=== PATIENT | male | born 1960 | race African-American/Black ===

== ENCOUNTER 2018-04-07 21:26 | Emergency (ER) | payer SELFPAY ==
--- NOTE | 2018-04-07 22:30 | ER ---
Nurse's Notes [facility] Name: Emory Stephens Age: 57 yrs Sex: Male : 1960 Arrival Date: 04/07/2018 Time: 21:27 Bed 27 Private MD: Diagnosis: Cutaneous abscess of back [any part, except buttock] Presentation: 04/07 21:43 Presenting complaint: Patient states: abscess to upper back X1 week. pt c/o increased ak1 pain today. pt with bandage over wound due to drainage that started today. Transition of care: patient was not received from another setting of care. Onset of symptoms is unknown. Risk Assessment: Do you want to hurt yourself or someone else? Patient reports no desire to harm self or others. Care prior to arrival: None. 21:43 Method Of Arrival: Ambulatory ak1 21:43 Acuity: TERRENCE 4 ak1 22:38 Initial Sepsis Screen: Does the patient meet any 2 criteria? No. Patient's initial mg2 sepsis screen is negative. Does the patient have a suspected source of infection? No. Patient's initial sepsis screen is negative. Triage Assessment: 21:43 General: Appears in no apparent distress. Behavior is calm, cooperative. Pain: ak1 Complains of pain in thoracic area. EENT: No signs and/or symptoms were reported regarding the EENT system. Neuro: No deficits noted. Cardiovascular: No deficits noted. Respiratory: No deficits noted. GI: No signs and/or symptoms were reported involving the gastrointestinal system. : No signs and/or symptoms were reported regarding the genitourinary system. Derm: Abscess located on thoracic area is half dollar sized, is red, is raised, bloody drainage. Musculoskeletal: No signs and/or symptoms reported regarding the musculoskeletal system. Historical: - Allergies: 21:43 No Known Allergies; ak1 - Home Meds: 21:43 None [Active]; ak1 - PMHx: 21:43 None; ak1 - PSHx: 21:43 None; ak1 - Immunization history:: Adult Immunizations unknown. - Social history:: Smoking status: Patient uses tobacco products, smokes one-half pack cigarettes per day. - Ebola Screening: : No symptoms or risks identified at this time. Screenin:45 Abuse screen: Denies threats or abuse. Denies injuries from another. Nutritional ak1 screening: No deficits noted. Tuberculosis screening: No symptoms or risk factors identified. Fall Risk None identified. Assessment: 22:21 General: Appears in no apparent distress. comfortable, Behavior is calm, cooperative. mg2 Pain: Complains of pain in back Pain does not radiate. Pain currently is 5 out of 10 on a pain scale. Quality of pain is described as aching, Pain began gradually. Neuro: Level of Consciousness is awake, alert, obeys commands, Oriented to person, place, time, situation. Cardiovascular: Capillary refill < 3 seconds Patient's skin is warm and dry. Respiratory: Airway is patent Respiratory effort is even, unlabored, Respiratory pattern is regular, symmetrical. GI: No signs and/or symptoms were reported involving the gastrointestinal system. : No signs and/or symptoms were reported regarding the genitourinary system. EENT: No signs and/or symptoms were reported regarding the EENT system. Derm: Abscess located on back is half dollar sized. Musculoskeletal: Circulation, motion, and sensation intact. Vital Signs: 21:43 BP 149 / 94; Pulse 82; Resp 16; Temp 99.0(O); Pulse Ox 97% on R/A; Weight 62.14 kg (R); ak1 Height 5 ft. 9 in. (175.26 cm) (R); Pain 8/10; 22:38 BP 130 / 75; Pulse 78; Resp 18; Pulse Ox 100% on R/A; Pain 2/10; mg2 21:43 Body Mass Index 20.23 (62.14 kg, 175.26 cm) ak1 ED Course: 21:27 Patient arrived in ED. ds1 21:43 Triage completed. ak1 21:43 Arm band placed on Patient placed in waiting room, Patient notified of wait time. ak1 21:45 Patient has correct armband on for positive identification. ak1 21:58 Sacha Ceja MD is Attending Physician. gs 22:00 Cesar Pompa RN is Primary Nurse. mg2 22:38 No provider procedures requiring assistance completed. Patient did not have IV access mg2 during this emergency room visit. Administered Medications: No medications were administered Outcome: 22:29 Discharge ordered by MD. gs 22:38 Discharged to home ambulatory. mg2 22:38 Condition: stable 22:38 Discharge instructions given to patient, Instructed on discharge instructions, follow up and referral plans. medication usage, Demonstrated understanding of instructions, follow-up care, medications, Prescriptions given X 1. 22:39 Patient left the ED. mg2 Signatures: Brandi Escoto ds1 Mariann Phillips RN RN ak1 Sacha Ceja MD MD Cesar Pompa RN RN mg2
--- NOTE | 2018-04-07 22:31 | EDPHYS ---
Physician Documentation [facility] Name: Emory Stephens Age: 57 yrs Sex: Male : 1960 Arrival Date: 04/07/2018 Time: 21:27 Bed 27 Private MD: ED Physician Sacha Ceja HPI: 04/08 01:25 This 57 yrs old Black Male presents to ER via Ambulatory with complaints of Cyst. gs 01:25 The patient presents with an abscess of the back. Description: The affected area is gs approximately 4 cm(s), confluent, draining, warm. Modifying factors: the symptoms are aggravated by squeezing the lesion and expressing the contents. Severity of symptoms: At their worst the symptoms were moderate, in the emergency department the symptoms are unchanged. The patient has experienced similar episodes in the past, a few times. Historical: - Allergies: 04/07 21:43 No Known Allergies; ak1 - Home Meds: 21:43 None [Active]; ak1 - PMHx: 21:43 None; ak1 - PSHx: 21:43 None; ak1 - Immunization history:: Adult Immunizations unknown. - Social history:: Smoking status: Patient uses tobacco products, smokes one-half pack cigarettes per day. - Ebola Screening: : No symptoms or risks identified at this time. ROS: 04/08 01:25 All other systems are negative. gs Exam: 01:25 Head/Face: Normocephalic, atraumatic. Eyes: Pupils equal round and reactive to light, gs extra-ocular motions intact. Lids and lashes normal. Conjunctiva and sclera are non-icteric and not injected. Cornea within normal limits. Periorbital areas with no swelling, redness, or edema. ENT: Nares patent. No nasal discharge, no septal abnormalities noted. Tympanic membranes are normal and external auditory canals are clear. Oropharynx with no redness, swelling, or masses, exudates, or evidence of obstruction, uvula midline. Mucous membranes moist. Neck: Trachea midline, no thyromegaly or masses palpated, and no cervical lymphadenopathy. Supple, full range of motion without nuchal rigidity, or vertebral point tenderness. No Meningismus. Chest/axilla: Normal chest wall appearance and motion. Nontender with no deformity. No lesions are appreciated. Cardiovascular: Regular rate and rhythm with a normal S1 and S2. No gallops, murmurs, or rubs. Normal PMI, no JVD. No pulse deficits. Respiratory: Lungs have equal breath sounds bilaterally, clear to auscultation and percussion. No rales, rhonchi or wheezes noted. No increased work of breathing, no retractions or nasal flaring. Abdomen/GI: Soft, non-tender, with normal bowel sounds. No distension or tympany. No guarding or rebound. No evidence of tenderness throughout. 01:25 Constitutional: The patient appears alert, awake. 01:25 Back: drained abscess 4x4 cm. 01:25 Musculoskeletal/extremity: Exam is negative for acute changes. 01:25 Skin: abscess, that is moderate sized, of the thoracic area, with drainage, with induration, with surrounding cellulitis. Vital Signs: 04/07 21:43 BP 149 / 94; Pulse 82; Resp 16; Temp 99.0(O); Pulse Ox 97% on R/A; Weight 62.14 kg (R); ak1 Height 5 ft. 9 in. (175.26 cm) (R); Pain 8/10; 22:38 BP 130 / 75; Pulse 78; Resp 18; Pulse Ox 100% on R/A; Pain 2/10; mg2 21:43 Body Mass Index 20.23 (62.14 kg, 175.26 cm) ak1 MDM: 22:20 Patient medically screened. gs 04/08 01:25 Differential diagnosis: abscess, cellulitis. Data reviewed: vital signs, nurses notes. gs Response to treatment: the patient's symptoms have mildly improved after treatment, and as a result, I will discharge patient. ED course: explained abscessed drained would start abx . Administered Medications: No medications were administered Disposition: 04/07/18 22:29 Discharged to Home. Impression: Cutaneous abscess of back [any part, except buttock]. - Condition is Stable. - Discharge Instructions: Skin Abscess. - Prescriptions for Bactrim DS 800- 160 mg Oral Tablet - take 1 tablet by ORAL route 3 times per day for 10 days; 30 tablet. - Medication Reconciliation Form, Thank You Letter, Antibiotic Education, Prescription Opioid Use form. - Follow up: Private Physician; When: 2 - 3 days; Reason: Re-evaluation by your physician. Signatures: Mariann Phillips, RN RN ak1 Sacha Ceja MD MD gs Cesar Pompa RN RN mg2 Corrections: (The following items were deleted from the chart) 04/07 22:39 22:29 04/07/2018 22:29 Discharged to Home. Impression: Cutaneous abscess of back [any mg2 part, except buttock]. Condition is Stable. Forms are Medication Reconciliation Form, Thank You Letter, Antibiotic Education, Prescription Opioid Use. Follow up: Private Physician; When: 2 - 3 days; Reason: Re-evaluation by your physician. gs
== END 2018-04-07 22:39 | disposition home or self-care (01) ==
LOC: ER 21:26
DX: L02.212 Cutaneous abscess of back [any part, except buttock and flank] (principal); F17.210 Nicotine dependence, cigarettes, uncomplicated
CPT/HCPCS: 99282

== ENCOUNTER 2021-12-12 09:28 | Emergency (ER) | payer SELFPAY ==
--- OUTSIDE RECORDS SUMMARY | 2021-12-12 09:30 | XMS REPORT | Continuity of Care Document ---
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[place], [place] Syncope Syncope Disease Active Univers 5-09 ity of 00:00: [address] Allergies, Adverse Reactions, Alerts Allergy Allergy Status Severity Reaction(s) Onset Inactive Treating Comm ents Source Name Type Date Date Clinician NO KNOWN Drug Active Univers ALLERGIE Class ity of S [facility] Social History Social Habit Start Date Stop Date Quantity Comments Source History of tobacco Cigarette Smoker University of use [facility] Exposure to 2021-11-26 2021-12-06 Not sure [facility] SARS-CoV-2 (event) 00:00:00 09:53:00 [facility] Alcohol intake 2021-12-06 2021-12-06 .14 /d University 00:00:00 00:00:00 [facility] Cigarettes smoked 2017-11-28 2017-11-28 Univers ity of current (pack per 00:00:00 00:00:00 ) - Reported Branch Tobacco use and 2017-11-28 2017-11-28 Never used Universit y of exposure 00:00:00 00:00:00 [facility] Sex Assigned At [birth year] Universit y of 00:00:00 00:00:00 [facility] Smoking Status Start Date Stop Date Source Current every day smoker 2017-11-28 00:00:00 Uni versity of [facility] Medications Ordered Filled Start Stop Current Ordering Indication Dosage Frequency Signature Comments Components Source Medication Medication Date Date Medication? Clinician (SIG) Name Name ketorolac 2021- No 15mg 15 mg, Unive rs (TORADOL) 12-06 Slow IV ity of injection 18:00: 17:17 Push, [place] 15 mg 00 :00 ONCE, 1 Medical dose, On Branch Sun12/06/21 at 1300, SATINDER
Fa culty member approving Restricted medication : CATHY LYN iopamidol 2021- No [id number] 100mL 100 mL, Univers (ISOVUE 12-06 Intravenou ity o f 370-500 mL) 17:00: 15:54 s, ONCE, 1 [place] injection 00 :00 dose, On Medica l 100 mL [facility] Branch 12/06/21 at 1200, Routine NaCl 0.9% 2021- No 1000mL at 999 Uni vers (NS) bolus 12-06-17 mL/hr, ity of infusion 16:15: 16:22 1,000 mL, Adrian as 1,000 mL 00 :00 IV Medical Infusion, Branch ONCE, 1 dose, On Sun12/06/21 at 1115, STAT maalox:diph 2021- No 15mL 15 mL, Uni vers enhydrAMINE 12-06 Oral, ity of :lidocaine 16:15: 15:22 ONCE, 1 [place] as 2 % viscous 00 :00 dose, On Medi saira 1:1:1 Branch (FIRST-MOUT 12/06/21 at [facility]) 1115, oral Routine suspension 15 mL proMETHazin Yes [id number] 25mg Take 1 Univers e 25 mg 5-17 tablet by ity of tablet 00:00: mouth [place] 00 every 6 Medical (six) Branch hours as needed for Nausea and Vomiting (N/V). lisinopriL Yes [id number] 10mg Take 1 U nivers 10 mg 5-17 tablet by ity of tablet 00:00: mouth at [place] 00 bedtime. Medical [place] Vital Signs Vital Name Observation Time Observation Value Comments Source Systolic blood 2021-12-06 17:00:00 180 mm[Hg] Univer sity of pressure [facility] Diastolic blood 2021-12-06 17:00:00 119 [facility]Hg[facility] 2021-12-06 17:00:00 73 /min [facility] Respiratory rate 2021-12-06 17:00:00 14 /min [facility] Oxygen saturation in 2021-12-06 17:00:00 99 /min [facility] Arterial blood by [facility] Pulse oximetry [place] Body temperature 2021-12-06 14:54:00 36.61 Liza [facility] Body height 2021-12-06 14:54:00 175.3 cm [facility] Body weight 2021-12-06 14:54:00 63.504 kg [facility] BMI 2021-12-06 14:54:00 20.67 kg/m2 [facility] Procedures Procedure Date / Time Performed Performing Clinician [facility] e CT ABDOMEN PELVIS W 2021-12-06 16:00:34 [facility] LIPASE 2021-12-06 15:08:00 Cathy Lyn [facility] TROPONIN I 2021-12-06 15:08:00 Cathy Lyn [facility] COMP. METABOLIC PANEL 2021-12-06 15:08:00 Cathy Lyn [facility] ([id number]) [facility] CBC WITH DIFF 2021-12-06 15:08:00 Cathy Lyn [facility] NOTICE OF PRIVACY 2021-12-06 14:52:58 Doctor Unassigned, No Univ [facility] PRACTICES Name Medical Branch Encounters Start End Encounter Admission Attending Care Care Encounter Source Date/Time Date/Time Type Type Clinicians Facility Department ID 2021-12-06 2021-12-06 Emergency Riki [facility] [id number] Univers 09:52:00 12:31:00 Cathy AGUILLONJW [id number] i James [id number] [facility] [id number] [place] [id number] Branch 2021-12-06 2021-12-06 Emergency X RIKI [facility] ERT [id number] Univers 09:52:00 12:31:00 CATHY cruz [facility] Results Test Description Test Time Test Comments Results Result Comments Source TROPONIN I 2021-12-06 15:39:12 Test Item Value Reference Range Interpretation Comme nts TROPONIN I (test code = 0.003 ng/mL See_Comment [Au tomated message] The [id number]) system which ge nerated this result tra nsmitted reference range : <=0.034. The reference r vanessa was not used to int erpret this result as normal/abnormal . JENNIFER (test code = JENNIFER) Reference (Normal) Range (defined by the 99th percentile reference limit): <= 0.034 ng/mL Note: Cardiac troponin begins to rise 3-4 hours after the onset of ischemia. Repeat in 4-6 hours if the sample was drawn within 3-4 hours of the onset of the symptom and found normal. Diagnosis of myocardial injury is made with acute changes in cTn concentrations with at least one serial sample above the 99th percentile upper reference limit (URL), taken together with the patient's clinical presentation. Biotin has been reported to cause a negative bias, interpret results relative to patient's use of biotin. Lab Interpretation Normal (test code = 28321-6) [facility] ([id number][facility]2021-12-06 15:28:50 Test Item Value Reference Range Interpretation Comments NA (test code = 136 mmol/L 135-145 9885282552) K (test code = 4.6 mmol/L 3.5-5.0 1029678357) CL (test code = 93 mmol/L 98-108 L 1199408676) CO2 TOTAL (test code = 30 mmol/L 23-31 4467613240) AGAP (test code = 2-16 7777174930) BUN (test code = 11 mg/dL 7-23 4996183191) GLUCOSE (test code = 109 mg/dL 70-110 3209997302) CREATININE (test code = 0.91 mg/dL 0.60-1.25 2248429953) TOTAL BILI (test code = 0.7 mg/dL 0.1-1.7 6392777306) CALCIUM (test code = 10.1 mg/dL 8.6-10.6 1420522868) T PROTEIN (test code = 8.1 g/dL 6.3-8.2 3730993825) ALBUMIN (test code = 4.8 g/dL 3.5-5.0 2427949093) ALK PHOS (test code = 98 U/L 34-122 2354049506) ALTv (test code = 21 U/L 5-50 2-6) AST(SGOT) (test code = 25 U/L 13-40 0610363643) eGFR (test code = mL/min/1.73m2 7825412330) JENNIFER (test code = JENNIFER) Association of Glomerular Filtration Rate (GFR) and Staging of Kidney Disease* + --+ --+ ------+| GFR (mL/min/1.73 m2) ?| With Kidney Damage ?| ?Without Kidney Damage+ --------+ --------+ +| ?>90 ?| ?Stage one ?| ? Normal ?+ ---+ ---+ -------+| ?60-89 ?| ?Stage two ?| ? Decreased GFR ? + --+ --+ ------+| ?30-59 ?| ?Stage three ?| ? Stage three ? + --+ --+ ------+| ?15-29 ?| ?Stage four ? | ? Stage four ?+ ---+ ---+ -------+| ?<15 (or dialysis) ? ?| ?Stage five ? | ? Stage five ?+ ---+ ---+ -------+ *Each stage assumes the associated GFR level has been in effect for at least three months. ?Stages 1 to 5, with or without kidney disease, indicate chronic kidney disease. Notes: Determination of stages one and two (with eGFR >59mL/min/1.73 m2) requires estimation of kidney damage for at least three months as defined by structural or functional abnormalities of the kidney, manifested by either:Pathological abnormalities or Markers of kidney damage (including abnormalities in the composition of the blood or urine or abnormalities in imaging tests). Lab Interpretation Abnormal (test code = 62151-2) [facility] 15:28:10 Test Item Value Reference Range Interpretation Comments LIPASE (test code = 5905146014) 145 U/L 0-220 Lab Interpretation (test code = Normal 15455-7) [facility] WITH [id number] 15:15:47 Test Item Value Reference Range Interpretation Comments WBC (test code = See_Comment [Automated 6690-2) message] The sy stem which generated this result transmitted reference range : 4.20 - 10.70 10*3/?L. The reference range was not used to interpret this result as normal/abnormal . RBC (test code = See_Comment H [Automated 789-8) message] The sy stem which generated this result transmitted reference range : 4.26 - 5.52 10*6/?L. The reference range was not used to interpret this result as normal/abnormal . HGB (test code = 17.2 g/dL 12.2-16.4 H 718-7) HCT (test code = 50.6 % 38.4-49.3 H 4544-3) MCV (test code = 88.9 fL 81.7-95.6 787-2) MCH (test code = 30.2 pg 26.1-32.7 785-6) MCHC (test code = 34.0 g/dL 31.2-35.0 786-4) RDW-SD (test code = 40.9 fL 38.5-51.6 32266-5) RDW-CV (test code = 12.5 % 12.1-15.4 788-0) PLT (test code = See_Comment H [Automated 777-3) message] The sy stem which generated this result transmitted reference range : 150 - 328 10*3/ ?L. The reference r vanessa was not used to interpret this result as normal/abnormal . MPV (test code = 8.9 fL 9.8-13.0 L 59176-5) NRBC/100 WBC (test See_Comment [Automat ed code = 3364336422) message] The system which generated this result transmitted reference range : 0.0 - 10.0 /100 WBCs. The refer ence range was not u sed to interpret th is result as normal/abnormal . NRBC x10^3 (test code <0.01 See_Comment [Auto mated = 2488983225) message] The s ystem which generated this result transmitted reference range : 10*3/?L. The reference range was not used to interpret this result as normal/abnormal . GRAN MAT (NEUT) % 65.6 % (test code = 770-8) IMM GRAN % (test code 0.20 % = 1764691630) LYMPH % (test code = 24.3 % 736-9) MONO % (test code = 8.4 % 5905-5) EOS % (test code = 0.7 % 713-8) BASO % (test code = 0.8 % 706-2) GRAN MAT x10^3(ANC) 6.23 10*3/uL 1.99-6.95 (test code = 9354450396) IMM GRAN x10^3 (test <0.03 0.00-0.06 code = 8432434606) LYMPH x10^3 (test code 2.31 10*3/uL 1.09-3.23 = 731-0) MONO x10^3 (test code 0.80 10*3/uL 0.36-1.02 = 742-7) EOS x10^3 (test code = 0.07 10*3/uL 0.06-0.53 711-2) BASO x10^3 (test code 0.08 10*3/uL 0.01-0.09 = 704-7) Lab Interpretation Abnormal (test code = 49777-3) [facility]"
[2021-12-12 09:48] LABS: Absolute Lymphocytes (CBC) 2.7 K/uL (0.7-4.9); Hematocrit 51.7 % (39.6-49.0); Lymphocytes % 20.9 % (15.3-44.8); MPV 7.2 fL (7.6-11.3); RBC Red Blood Cell Count 5.86 M/uL (4.33-5.43)
[2021-12-12] MEDS ORDERED: NA CHLORIDE 0.9% 1,000 ML ONE (09:49)
[2021-12-12 10:44] LABS: Potassium 4.1 mmol/L (3.5-5.1); Troponin High Sensitivity 9.8 pg/mL (<58.9)
--- NOTE | 2021-12-12 11:05 | RAD REPORT ---
EXAM DESCRIPTION: RAD - Chest Single View - 12/12/2021 10:48 am CLINICAL HISTORY: SOB Chest pain. COMPARISON: No comparisons FINDINGS: Portable technique limits examination quality. The lungs are grossly clear. The heart is normal in size. No displaced fractures. IMPRESSION: No acute intrathoracic process suspected.
--- NOTE | 2021-12-12 11:24 | RAD REPORT ---
EXAM DESCRIPTION: CTAbdomen Pelvis W Contrast - 12/12/2021 11:15 am CLINICAL HISTORY: Abdominal pain. Nausea/vomiting COMPARISON: No comparisons TECHNIQUE: Biphasic CT imaging of the abdomen and pelvis was performed with 100 ml non-ionic IV cont rast. All CT scans are performed using dose optimization technique as appropriate and may include automated exposure control or mA/KV adjustment according to patient size. FINDINGS: The lung bases are clear. Benign slightly septated cystic lesion is present superior aspect of the right lobe liver measuring 1 5 mm. Small nonspecific 7 mm intermediate density lesion is present outer right lobe liver inferiorly . No biliary dilatation is evident. Small hiatal hernia. The spleen, pancreas, adrenal glands and kid neys are within normal limits. There is edema noted in the wall of body of the stomach distally. No bowel obstruction, free air, free fluid or abscess. Moderate aortoiliac atherosclerosis. The appen tyrone is normal. No evidence of significant lymphadenopathy. Mild lumbar degenerative changes are present. IMPRESSION: No acute intra-abdominal or pelvic finding. Mild edema involving the body of the stomach could indicate gastritis.
--- NOTE | 2021-12-12 12:00 | EDPHYS ---
Physician Documentation [facility] Name: Emory Stephens Age: 61 yrs Sex: Male : 1960 Arrival Date: 12/12/2021 Time: 09:31 Bed 4 Private MD: ED Physician Yuan Pradhan HPI: 12/12 09:33 This 61 yrs old Black Male presents to ER via Unassigned with complaints of nausea/ ms3 vomiting. 09:33 The patient presents to the emergency department with nausea, vomiting, diarrhea. ms3 Onset: The symptoms/episode began/occurred 2 week(s) ago. Possible causes: unknown. The symptoms are aggravated by nothing. The symptoms are alleviated by nothing. Associated signs and symptoms: The patient has no apparent associated signs or symptoms. 61-year-old male with no past medical history presents for nausea, vomiting, diarrhea, abdominal pain that is been ongoing for 2 weeks. Patient states he has been seen at 2 outside hospitals with negative work-ups. Patient states he is having 9/10 sharp left lower quadrant abdominal pain. Patient denies alleviating or inciting factors.. Historical: - Allergies: 09:35 No Known Allergies; jd3 - Home Meds: 10:10 lisinopril 10 mg oral tab once daily [Active]; promethazine 25 mg Oral tab every 6 aa5 hours [Active]; - PMHx: 09:35 None; jd3 - PSHx: 09:35 None; jd3 - Immunization history:: Adult Immunizations up to date, Client reports receiving the 2nd dose of the Covid vaccine, Flu vaccine is not up to date. - Social history:: Smoking status: Patient reports the use of cigarette tobacco products, smokes one-half pack cigarettes per day. ROS: 09:33 Constitutional: Negative for fever, and chills. Eyes: Negative for injury, pain, ms3 redness, and discharge, Cardiovascular: Negative for chest pain, and palpitations. Respiratory: Negative for shortness of breath, cough, wheezing, and pleuritic chest pain, MS/Extremity: Negative for injury and deformity, Skin: Negative for injury, rash, and discoloration, Neuro: Negative for headache, weakness, numbness, tingling. 09:33 Abdomen/GI: Positive for nausea, vomiting, and diarrhea. 09:33 All other systems are negative. Exam: 09:30 ECG was reviewed by the Attending Physician. ms3 09:30 Abdomen/GI: Inspection: abdomen appears normal, Bowel sounds: normal, Palpation: mild abdominal tenderness, in the left lower quadrant. 09:33 Constitutional: This is a well developed, well nourished patient who is awake, alert, ms3 and in no acute distress. Head/Face: Normocephalic, atraumatic. Neck: Trachea midline, no cervical lymphadenopathy. Supple, full range of motion without nuchal rigidity, or vertebral point tenderness. No Meningismus. Chest/axilla: Normal chest wall appearance and motion. Nontender with no deformity. Skin: Warm, dry with normal turgor. Normal color with no rashes, no lesions, and no evidence of cellulitis. MS/ Extremity: Pulses equal, no cyanosis. Neurovascular intact. Full, normal range of motion. Neuro: Awake and alert, GCS 15, oriented to person, place, time, and situation. Cranial nerves II-XII grossly intact. Motor strength 5/5 in all extremities. Sensory grossly intact. Cerebellar exam normal. Normal gait. 09:33 Cardiovascular: Rate: tachycardic, Rhythm: regular, Pulses: no pulse deficits are appreciated, Heart sounds: normal. Vital Signs: 09:35 BP 128 / 106; Pulse 120; Resp 20 S; Temp 98.2(TE); Pulse Ox 98% on R/A; Weight 54.43 kg jd3 (R); Height 5 ft. 9 in. (175.26 cm) (R); Pain 9/10; 10:00 BP 135 / 99; Pulse 92; Resp 16 S; Pulse Ox 98% ; aa5 11:56 BP 153 / 99; Pulse 89; Resp 15; Pulse Ox 100% ; jl7 09:35 Body Mass Index 17.72 (54.43 kg, 175.26 cm) jd3 MDM: 09:30 Differential diagnosis: Nonspecific abd pain, gastritis, viral gastroenteritis, ms3 gastroenteritis. Data interpreted: school bus monitor: rate is 116 beats/min, rhythm is normal sinus rhythm, with no ectopy, Interpretation: tachycardia. 09:31 Patient medically screened. ms3 21:59 Data reviewed: vital signs, nurses notes, lab test result(s), radiologic studies. ms3 Counseling: I had a detailed discussion with the patient and/or guardian regarding: the historical points, exam findings, and any diagnostic results supporting the discharge/admit diagnosis, lab results, radiology results, the need for outpatient follow up, to return to the emergency department if symptoms worsen or persist or if there are any questions or concerns that arise at home. ED course: Discussed labs, CT, PE findings with patient. Patient to follow up with Dr Verdugo in 2-3 days. Patient understands/ agrees with plan. All questions answered. Return precautions given to include worsening symptoms, or any other concerns. Patient is improved, in NAD, non-toxic appearing, ambulatory in ED, speaking full sentences.. 12/12 09:33 Order name: Basic Metabolic Panel; Complete Time: 11:05 ms3 12/12 09:33 Order name: CBC with Diff; Complete Time: 11:05 ms3 12/12 09:33 Order name: NT PRO-BNP; Complete Time: 11:05 ms3 12/12 09:33 Order name: Troponin HS; Complete Time: 11:05 ms3 12/12 09:33 Order name: XRAY Chest (1 view); Complete Time: 11:27 ms3 12/12 09:33 Order name: CT Abd/Pelvis - IV Contrast Only; Complete Time: 11:27 ms3 12/12 09:33 Order name: EKG; Complete Time: 09:33 ms3 12/12 09:33 Order name: Cardiac monitoring; Complete Time: 09:37 ms3 12/12 09:33 Order name: EKG - Nurse/Tech; Complete Time: 09:37 ms3 12/12 09:33 Order name: IV Saline Lock; Complete Time: 09:37 ms3 12/12 09:33 Order name: Labs collected and sent; Complete Time: 09:37 ms3 12/12 09:33 Order name: O2 Per Protocol; Complete Time: 09:37 ms3 12/12 09:33 Order name: O2 Sat Monitoring; Complete Time: 09:37 ms3 EC:30 Rate is 112 beats/min. Rhythm is regular. Left axis deviation noted. Clinical ms3 impression: Sinus tachycardia. Interpreted by me. Administered Medications: 09:48 Drug: NS 0.9% 1000 ml Route: IV; Rate: 1 bolus; Site: right antecubital; aa5 11:00 Follow up: IV Status: Completed infusion; IV Intake: 1000ml aa5 Disposition Summary: 12/12/21 12:00 Discharge Ordered Location: Home ms3 Condition: Stable ms3 Diagnosis - Acute gastritis ms3 - Nausea with vomiting, unspecified ms3 - Abdominal pain, Generalized ms3 - hyponatremia ms3 - renal insufficiency ms3 - dehydration ms3 Followup: ms3 - With: Jimbo Nava MD - When: 2 - 3 days - Reason: Recheck today's complaints Discharge Instructions: - Discharge Summary Sheet ms3 - Abdominal Pain, Adult ms3 - Gastritis, Adult, [id number] ms3 Forms: - Medication Reconciliation Form ms3 - Thank You Letter ms3 - Antibiotic Education ms3 - Prescription Opioid Use ms3 Prescriptions: - Pepcid 20 mg Oral Tablet - take 1 tablet by ORAL route every 12 hours for 5 days; 20 tablet; Refills: 0, ms3 Product Selection Permitted - zofran 4 mg ODT - take 1 tablet by SUBLINGUAL route every 8 hours; 15 tablet; Refills: 0, Product ms3 Selection Permitted Signatures: Dispatcher [employer] Alisa Walker RN RN aa5 Corby Doll RN RN jd3 Yuan Pradhan DO DO ms3 Corrections: (The following items were deleted from the chart) 09:35 09:35 Allergies: Aspirin; antony hardy 10:12 09:35 Home Meds: None; antony aa5
--- NOTE | 2021-12-12 12:00 | ER ---
Nurse's Notes [facility] Name: Emory Stephens Age: 61 yrs Sex: Male : 1960 Arrival Date: 12/12/2021 Time: 09:31 Bed 4 Private MD: Diagnosis: Acute gastritis;Nausea with vomiting, unspecified;Abdominal pain, Generalized;hyponatremia;renal insufficiency;dehydration Presentation: 12/12 09:32 Chief complaint: Patient states: "2-3 weeks of nausea, vomiting, and diarrhea. I have jd3 been to 2 other hospitals and they can't find nothing. I am having this stomach pain too. I can't eat nothing and I am just dry. when it gets worse, I get short of breath.". Coronavirus screen: At this time, the client does not indicate any symptoms associated with coronavirus-19. Ebola Screen: No symptoms or risks identified at this time. Initial Sepsis Screen: Does the patient meet any 2 criteria? No. Patient's initial sepsis screen is negative. Does the patient have a suspected source of infection? No. Patient's initial sepsis screen is negative. Risk Assessment: Do you want to hurt yourself or someone else? Patient reports no desire to harm self or others. Onset of symptoms was November 29, 2021. 09:32 Method Of Arrival: Wheelchair j 09:32 Acuity: TERRENCE 2 jd3 Historical: - Allergies: 09:35 No Known Allergies; jd3 - Home Meds: 10:10 lisinopril 10 mg oral tab once daily [Active]; promethazine 25 mg Oral tab every 6 aa5 hours [Active]; - PMHx: 09:35 None; jd3 - PSHx: 09:35 None; jd3 - Immunization history:: Adult Immunizations up to date, Client reports receiving the 2nd dose of the Covid vaccine, Flu vaccine is not up to date. - Social history:: Smoking status: Patient reports the use of cigarette tobacco products, smokes one-half pack cigarettes per day. Screenin:30 Abuse screen: Denies threats or abuse. Nutritional screening: No deficits noted. aa5 Tuberculosis screening: No symptoms or risk factors identified. Fall Risk IV access (20 points). Total Gonzales Fall Scale indicates No Risk (0-24 pts). Assessment: 09:30 General: Appears uncomfortable, Behavior is calm, cooperative. Pain: Complains of pain aa5 in left lower quadrant Pain does not radiate. Pain currently is 9 out of 10 on a pain scale. Quality of pain is described as sharp, Pain began 2-3 weeks ago Is episodic, lasting more than 1 hour. Neuro: Level of Consciousness is awake, alert, obeys commands, Oriented to person, place, time, situation. Cardiovascular: Heart tones S1 S2 present Rhythm is regular. Respiratory: Airway is patent Respiratory effort is even, unlabored, Respiratory pattern is regular, symmetrical. GI: Abdomen is flat, non-distended, Bowel sounds present X 4 quads. Abd is soft X 4 quads Abdomen is tender to palpation in left lower quadrant Reports diarrhea, nausea, vomiting, since 2-3 weeks ago. : No signs and/or symptoms were reported regarding the genitourinary system. EENT: No signs and/or symptoms were reported regarding the EENT system. Derm: Skin is dry, Skin is normal, Skin temperature is warm. Musculoskeletal: Range of motion: intact in all extremities. 09:45 Reassessment: Pt was seen at [facility] 12/06/21 for same complaint and pt's brought CT aa5 abd results and lab results, copy made and included in chart, results showed to Dr. Pradhan. . 09:45 Reassessment: Awaiting CT scan and pending lab results, pt and notified of wait aa5 time. . 11:00 Reassessment: Pt resting in bed with eyes closed, easy to arouse verbal stimuli. . aa5 Neuro: Level of Consciousness is awake, alert, obeys commands, Oriented to person, place, time, situation. Respiratory: Airway is patent Respiratory effort is even, unlabored, Respiratory pattern is regular, symmetrical. Derm: Skin is dry, Skin is normal, Skin temperature is warm. 11:00 Reassessment: Awaiting CT scan. . aa5 Vital Signs: 09:35 BP 128 / 106; Pulse 120; Resp 20 S; Temp 98.2(TE); Pulse Ox 98% on R/A; Weight 54.43 kg jd3 (R); Height 5 ft. 9 in. (175.26 cm) (R); Pain 9/10; 10:00 BP 135 / 99; Pulse 92; Resp 16 S; Pulse Ox 98% ; aa5 11:56 BP 153 / 99; Pulse 89; Resp 15; Pulse Ox 100% ; jl7 09:35 Body Mass Index 17.72 (54.43 kg, 175.26 cm) jd3 ED Course: 09:30 Patient has correct armband on for positive identification. Bed in low position. Call aa5 light in reach. Side rails up X2. Adult w/ patient. 09:30 Inserted saline lock: 20 gauge in right antecubital area, using aseptic technique. IV aa5 inserted by CHARLES Turk. 09:31 Patient arrived in ED. iw 09:31 Yuan Pradhan DO is Attending Physician. ms3 09:35 Triage completed. jd3 09:36 Arm band placed on. jd3 09:36 EKG completed in triage. Results shown to MD. jd3 09:36 Initial lab(s) drawn, by me, sent to lab. aa5 09:37 Alisa Trevizo RN is Primary Nurse. aa5 09:43 EKG done, by ED staff, reviewed by Yuan Pradhan DO. em1 10:49 XRAY Chest (1 view) In Process Unspecified. EDMS 11:18 CT Abd/Pelvis - IV Contrast Only In Process Unspecified. EDMS 11:59 Jimbo Nava MD is Referral Physician. ms3 12:18 No provider procedures requiring assistance completed. IV discontinued, intact, jl7 bleeding controlled, No redness/swelling at site. Pressure dressing applied. Administered Medications: 09:48 Drug: NS 0.9% 1000 ml Route: IV; Rate: 1 bolus; Site: right antecubital; aa5 11:00 Follow up: IV Status: Completed infusion; IV Intake: 1000ml aa5 Medication: 12:19 VIS not applicable for this client. jl7 Intake: 11:00 IV: 1000ml; Total: 1000ml. aa5 Outcome: 12:00 Discharge ordered by . ms3 12:18 Discharged to home ambulatory. jl7 12:18 Condition: stable 12:18 Discharge instructions given to patient, family, Instructed on discharge instructions, follow up and referral plans. medication usage, Demonstrated understanding of instructions, follow-up care, medications, Prescriptions given X 2. 12:19 Patient left the ED. jl7 Signatures: Dispatcher [employer] EDMS nAnia Meyers RN RN iw Martinez, Eric em1 Alisa Trevizo RN RN aa5 Andrew Graham RN RN jl7 Corby Doll RN RN jd3 Yuan Pradhan DO DO ms3 Corrections: (The following items were deleted from the chart) 09:35 09:35 Allergies: Aspirin; jd3 jd3 10:12 09:35 Home Meds: None; jd3 aa5
[2021-12-12 12:26] VITALS: TEMP 98.2
[2021-12-12 12:29] VITALS: BP 153/99; O2SAT 100
--- NOTE | 2021-12-13 09:13 | EKG ---
Test Date: 2021-12-12 Test Time: 09:30:14 Atm Servicer: MINNIE MEASUREMENT RESULTS: Intervals: Rate: 112 MI: 188 QRSD: 82 QT: 322 QTc: 439 [place]: P: 85 MI: 188 QRS: -66 T: 83 INTERPRETIVE STATEMENTS: Sinus tachycardia with premature atrial complexes Biatrial enlargement Left anterior fascicular block Anteroseptal infarct, age undetermined Abnormal ECG No previous ECG available for comparison Electronically Signed On 12-13-21 09:08:31 CDT by Santosh Rinaldi
== END 2021-12-12 12:19 | disposition home or self-care (01) ==
LOC: ER 09:28
DX: K29.00 Acute gastritis without bleeding (principal); E87.1 Hypo-osmolality and hyponatremia; E86.0 Dehydration; N28.9 Disorder of kidney and ureter, unspecified; R10.84 Generalized abdominal pain; F17.210 Nicotine dependence, cigarettes, uncomplicated
CPT/HCPCS: 36415; 71045; 74177; 80048; 83880; 84484; 85025; 93005; 96360; 99284; J7030; Q9967